=== PATIENT | male | born 1940 | race Caucasian/White ===

== ENCOUNTER 2024-06-29 09:40 | Day surgery (SDC) | payer MEDICARE, SELFPAY ==
[2024-06-27 17:33] VITALS: BMI 20.2
[2024-06-29] MEDS: LACTATED RINGERS 1000ML 1,000 ML 50 ML IV (09:56)
[2024-06-29 10:05] VITALS: BP 162/90; PULSE 67; RESP 18; TEMP 36.6; O2SAT 99
--- NOTE | 2024-06-29 10:14 | EXP.ANES.CKL ---
[facility] Disclaimer: The information contained in this section may have been updated after the patient was seen, as this information can be updated by other users. Medical History Nasal septal deviation Hemorrhage Hernia Prostate cancer History of heart attack Surgical History Hx of cholecystectomy Hx of tonsillectomy History of heart artery stent Family History Mother Heart attack Father Heart attack Social History Smoking Status: Never smoker alcohol intake: never substance use type: denies use current occupational status: retired Travel in the last 8 weeks: None Have you lived/traveled outside [place] in past 30 days?: No Contact w/someone who lives/traveled outside [place] past 30 days?: No Exposure to someone with infectious disease in past 14 days?: No Do you have a fever (greater than 100.4 F or 38 C)?: No Have you tested positive for COVID-19: No Exposed to someone with COVID-19 in past 14 days?: No Do you have a sore throat?: No Do you have a cough?: No Do you have any weakness?: No Are you experiencing any nausea/vomitting?: No Do you have any diarrhea?: No Are you experiencing any unusual bleeding?: No Do you have any muscle aches/pain?: No Do you have any abdominal pain?: No Are you experiencing loss of taste or smell?: No [facility] Anesthesia Checklist Patient Identification Patient Identification: Arm Band, Family and Verbal (Name & ) Structural Data Admitted From: Home Planned Operative Procedure/s: EGD Consent for Planned Operative Procedure(s) Verified: Yes Verified Documents: Surgical Consent and History and Physical NPO Status Verified Time NPO: 08:00 Additional verifications Fingerstick Blood Glucose: 111 Patient : No Anesthesia Reactions: No Cardiovascular Assessment Heart Sounds: S1 & S2 Pulse Rhythm: Irregular Peripheral Edema: No Airway Assessment Mallampati Score:: Class II C-Spine Mobility Assessed: Yes TMJ Mobility Assessed: Yes Dentition: Good Dentition (Dentures out) Neurological Assessment Level of Consciousness: Awake, Alert, Appropriate and Follows Commands Hx Seizures: No Numbness or tingling in extremities: No Anesthesia Plan Anesthesia Plan: Verified ASA Class: III Anesthesia Type: MAC
[2024-06-29 11:26] VITALS: O2SAT 98
--- NOTE | 2024-06-29 11:29 | EXP.HP ---
History of Present Illness *Admission Date: 06/29/24 *Reason for visit:: GERD/weight loss (50 pounds) *History of present illness: Mr. Rivera is an 84-year-old gentleman who is here for diagnostic EGD secondary to GERD and weight loss. His last EGD was in 2018. The examination is deemed medically necessary for diagnostic EGD. The patient has been seen, interviewed and examined prior to the procedure by both myself and the anesthesia provider. [facility] Disclaimer: The information contained in this section may have been updated after the patient was seen, as this information can be updated by other users. Medical History Nasal septal deviation Hemorrhage Hernia Prostate cancer History of heart attack Surgical History Hx of cholecystectomy Hx of tonsillectomy History of heart artery stent Family History Mother Heart attack Father Heart attack Social History Smoking Status: Never smoker alcohol intake: never substance use type: denies use current occupational status: retired Travel in the last 8 weeks: None Have you lived/traveled outside [place] in past 30 days?: No Contact w/someone who lives/traveled outside [place] past 30 days?: No Exposure to someone with infectious disease in past 14 days?: No Do you have a fever (greater than 100.4 F or 38 C)?: No Have you tested positive for COVID-19: No Exposed to someone with COVID-19 in past 14 days?: No Do you have a sore throat?: No Do you have a cough?: No Do you have any weakness?: No Are you experiencing any nausea/vomitting?: No Do you have any diarrhea?: No Are you experiencing any unusual bleeding?: No Do you have any muscle aches/pain?: No Do you have any abdominal pain?: No Are you experiencing loss of taste or smell?: No Other Medical History Have you received the Pneumonia Vaccine: Yes Review of Systems Review of Systems Review of systems (narrative): Negative *Cardiovascular Comments: Negative *Gastrointestinal Comments: Negative *Genitourinary Comments: Negative *Musculoskeletal Comments: Negative *Neurologic Comments: Negative Meds Home Medications and Allergies Home Medications ?Medication ?Instructions ?Recorded ?Confirmed ?Type cholecalciferol (vitamin D3) 25 25 mcg PO DAILY 03/08/24 06/27/24 History mcg (1,000 unit) capsule clopidogrel 75 mg tablet (Plavix) 75 mg PO DAILY 03/08/24 06/29/24 History glipizide 10 mg tablet 10 mg PO DAILY 03/08/24 06/27/24 History glucosamine HCl 1,500 mg tablet 1,500 mg PO DAILY 03/08/24 06/27/24 History metoprolol succ 25 12.5 tab PO BID 03/08/24 06/27/24 History mg-hydrochlorothiazide 12.5 mg tablet,ext.rel 24 hr pantoprazole 40 mg tablet,delayed 40 mg PO DAILY 03/08/24 06/27/24 History release polyethylene glycol 3350 17 17 g PO DAILY 03/08/24 06/27/24 History gram/dose oral powder (Miralax) rosuvastatin 20 mg tablet 20 mg PO DAILY 03/08/24 06/27/24 History mecobalamin (vitamin B12) 500 mcg 500 mcg PO WEEKLY 04/20/24 06/27/24 History chewable tablet psyllium seed (sugar) oral powder 1 tbsp PO DAILY 04/20/24 06/27/24 History (Metamucil (sugar) oral powder) empagliflozin 25 mg tablet 25 mg PO DAILY 06/29/24 06/29/24 History New Prescriptions to Start Prescriptions: Allergies Allergy/AdvReac Type Severity Reaction Status Date / Time aspirin Allergy Mild Rash Verified 06/27/24 17:27 Exam Data for Last 24 hours Vital signs and Labs for Last 24 Hours: Temp Pulse Resp BP Pulse Ox O2 Del Method 97.9 F 67 18 162/90 H 99 Room Air 06/29/24 10:05 06/29/24 10:05 06/29/24 10:05 06/29/24 10:05 06/29/24 10:05 06/29/24 10:05 I & O for Last 24 hours: Intake & Output 06/26/24 06/27/24 06/28/24 06/29/24 23:59 23:59 23:59 23:59 Weight 153 lb *Routine HEENT Exam Head: Present normocephalic Eye: Present EOMI and PERRL ENT: Present mucous membranes moist *Routine Neck Exam Neck: Present supple *Routine Respiratory Exam Respiratory: Present CTA bilaterally *Routine Cardiovascular Exam Cardiovascular: Present RRR *Routine Abdominal Exam Abdominal: Present soft and normoactive bowel sounds; Absent tenderness *Routine Rectal Exam Rectal:: deferred *Routine Genitalia Exam Genitalia:: deferred *Routine Extremities Exam Extremities: Absent cyanosis, clubbing or edema *Routine Skin Exam Skin: Present warm; Absent rash *Routine Neurological Exam Neurological: Present alert and oriented X3 Assessment and Plan *Assessment and plan (1) Chronic GERD: Status: Acute Category: Medical Code(s): K21.9 - Gastro-esophageal reflux disease without esophagitis (2) Weight loss: Status: Acute Category: Medical Code(s): R63.4 - Abnormal weight loss Plan A/P: 1. GERD/weight loss is the preprocedural diagnosis. The patient will be anesthetized/sedated using MAC sedation. The patient has been seen and examined. Cardiac and lung assessment prior to the examination is stable. Proceed with planned EGD
--- NOTE | 2024-06-29 11:42 | P.PCN_ITS ---
[facility] Procedure Note Date: 06/29/24 Time: 11:48 Procedure Note:: Upper Endoscopy Procedure Report: Esophagogastroduodenoscopy with cold biopsies Endoscopost: Mahin Alvarado II, MD Referring Physician: CAROLE Campos Date of Procedure: June 29, 2024 Equipment: Olympus GIF 190 standard upper endoscope Sedation: MAC sedation Indications: Mr. Rivera is an 84-year-old gentleman who is here for abnormal weight loss of 50 pounds over the last few years. The patient does have chronic GERD. He is on 40 mg pantoprazole daily which controls his heartburn and reflux. The patient reports having a good appetite with no abdominal pain or early satiety. He does have a history of constipation predominant IBS but will have some intermittent diarrhea. He did see Vance Chavarria MD/colorectal surgeon in [place] 3 to 4 years ago and had multiple tests run. He had serum celiac serologies (normal tissue transglutaminase IgA), normal fecal elastase and normal fecal fat testing. He has been on combined MiraLAX plus fiber. He still has some incomplete defecation. He does report moderate bloating. He reports no dysphagia. Procedure: Prior to the procedure, a history and physical exam was performed, and patient's medications and allergies were reviewed. The risks, benefits and alternatives of the sedation and procedure were discussed with the patient. All questions were answered and informed consent was obtained. The patient was brought to the procedure room. Patient identification and proposed procedure were verified by the physician and the nurse. The patient was placed in a left lateral decubitus position and the scope was passed under direct vision. Throughout the procedure, the patient's blood pressure, pulse, and oxygen saturations were monitored continuously. The upper GI endoscopy was accomplished without difficulty. The patient tolerated the procedure well. Findings: The scope was passed directly into the upper esophagus and advanced to the third portion of the duodenum. The post bulbar duodenum and duodenal bulb were normal with normal mucosa and conniventes. The scope was withdrawn through a normal duodenal bulb and pylorus into the stomach. There was moderate bile reflux with mild linear reactive gastropathy of the antrum. There was mild mosaic/reticular pattern in the body and fundus of the stomach and biopsies were taken from the antrum and lesser curvature separately to rule out H. pylori. Upon retroflexion there was no hiatal hernia. The scope was then withdrawn into the esophagus. There was no evidence of reflux esophagitis or Christy's. The remainder of the esophageal mucosa was normal. Impression: 1. Nonerosive GERD with mild esophageal dysmotility 2. Bile reflux with mild antral gastropathy and mild chronic gastritis Plan: I will follow-up the biopsies to rule out H. pylori. The patient does have uncomplicated GERD and may benefit from coming off of PPI therapy. I would consider herbal Iberogast twice daily for the bile reflux (for motility and improvement of bloating). Based upon his marked weight loss, I would consider imaging of the chest, abdomen and pelvis. I will discuss the findings with the patient and family.
[2024-06-29 11:43] LABS: POC Glucose,Bedside 111 (70-110)
[2024-06-29 11:51] VITALS: BP 108/60; PULSE 55; RESP 16; TEMP 36.2; O2SAT 100
[2024-06-29 12:01] VITALS: BP 105/57; PULSE 58; RESP 16; O2SAT 98
[2024-06-29 12:11] VITALS: BP 107/55; PULSE 60; RESP 16; O2SAT 99
[2024-06-29 12:21] VITALS: BP 114/64; PULSE 58; RESP 16; O2SAT 100
== END 2024-06-29 12:50 | disposition home or self-care (01) ==
PROVIDERS: PCP Nurse Practitioner Family; Visit Provider Internal Medicine Gastroenterology
PROC: 0DJ08ZZ Inspection of Upper Intestinal Tract, Via Natural or Artificial Opening Endoscopic (ICD-10-PCS; CPT 43239; principal; 2024-06-29 11:30)
DX: K21.9 Gastro-esophageal reflux disease without esophagitis (principal); R63.4 Abnormal weight loss; K31.9 Disease of stomach and duodenum, unspecified; K29.70 Gastritis, unspecified, without bleeding; K22.4 Dyskinesia of esophagus; Z68.20 Body mass index [BMI] 20.0-20.9, adult; Z79.84 Long term (current) use of oral hypoglycemic drugs
CPT/HCPCS: 43239; 82962; J7120